=== PATIENT | female | born 1965 | race Caucasian/White ===

== ENCOUNTER 2019-05-10 13:27 | Inpatient (IN) | payer BC, OTHER ==
[~2019-05-10] VITALS: Ht 162.6 cm; Wt 68.9 kg
[2019-05-10 13:35] VITALS: BP 142/95
[2019-05-10] MEDS ORDERED: XANAX 0.25 MG0.25 MG PO (13:52)
[2019-05-10] MEDS ORDERED: PRINIVIL10 MG PO (13:52)
[2019-05-10 14:51] LABS: HEMATOCRIT 41.5 % (37.0-47.0); HEMOGLOBIN 13.9 gm/dL (12.0-15.0); MCH 36.8 pg (26.0-34.0); MCHC 33.4 g/dL (28.0-37.0); MCV 110.3 fL (80.0-100.0); RBC 3.76 mil/uL (4.20-5.00); RDW 15.5 % (10.5-14.5); WBC 8.7 thou/uL (4.0-11.0)
[2019-05-10 14:53] LABS: AMP/METHAMP Negative (Negative); BARBITURATES Negative (Negative); BENZODIAZEPINES POSITIVE (Negative); COCAINE Negative (Negative); METHADONE Negative (Negative); OPIATES Negative (Negative); PCP Negative (Negative)
[2019-05-10 15:19] LABS: CALCIUM 9.5 mg/dL (8.5-10.1); CREATININE 0.8 mg/dL (0.6-1.0); POTASSIUM 3.9 mmol/L (3.5-5.1)
[2019-05-10 15:25] LABS: ALBUMIN 3.5 g/dL (3.4-5.0); TOTAL PROTEIN 6.7 g/dL (6.4-8.2)
[2019-05-10 18:04] VITALS: BP 136/90
[2019-05-10 18:37] VITALS: BP 137/88
[2019-05-10 19:02] VITALS: BP 150/100
[2019-05-10 20:10] VITALS: BP 149/105
[2019-05-10 20:25] VITALS: BP 122/65
[2019-05-11] VITALS: BP 119/62
[2019-05-11 05:00] VITALS: BP 118/79
[2019-05-11 06:14] LABS: ANION GAP 9 mmol/L (7-16); BUN 11 mg/dL (7-18); CALCIUM 9.3 mg/dL (8.5-10.1); CHLORIDE 100 mmol/L (98-107); CHOLESTEROL 179 mg/dL (<200); CO2 29 mmol/L (21-32); CREATININE 0.9 mg/dL (0.6-1.0); GLUCOSE 95 mg/dL (74-106); HDL CHOLESTEROL 66 mg/dL (>40); LDL CHOLESTEROL 97 mg/dL (<100); MAGNESIUM 1.5 mg/dL (1.8-2.4); POTASSIUM 3.9 mmol/L (3.5-5.1); SODIUM 138 mmol/L (136-145); TC:HDL 2.7 Ratio (Not establshd); TRIGLYCERIDE 84 mg/dL (<150); TROPONIN-I 0.07 ng/mL (<0.06); VLDL 17 mg/dL (<40)
[2019-05-11 07:10] VITALS: BP 120/82
--- NOTE | 2019-05-11 10:50 | EKG ---
[place] [address] [facility] [employer] [place] [address] ELECTROCARDIOGRAM REPORT Name: IAN GARCIA Room #: 358-P ADM IN M.R.#: [id number] Admission: 05/10/19 Attend Phys: Orion Castillo MD Discharge: Date of : 65 Report #: [id number] THIS REPORT FOR: //name// [facility] ED Test Date: 2019-05-10 Test Time: 13:38:48 Pat Name: IAN GARCIA Department: Room: 358 Gender: F Operations Mgr: RUPERTO : 1965 Requested By: Pavel Donato Order Number: [id number] MD: Norberto Hernandez Measurements Intervals [place] Rate: 137 P: 36 OR: 127 QRS: -9 QRSD: 93 T: 208 QT: 258 QTc: 390 Interpretive Statements Sinus tachycardia Ventricular premature complex Aberrant complex Probable left atrial enlargement LVH with secondary repolarization abnormality Anterior Q waves, possibly due to LVH Baseline wander in lead(s) V2 No previous ECG available for comparison Electronically Signed On 05-11-2019 10:50:07 VACUUM WORKER by Norberto Hernandez [email or web address] <ELECTRONICALLY SIGNED> By: Norberto Hernandez MD 05/11/19 1050 1338 37 Norberto Hernandez MD /PITA
[2019-05-11 10:56] VITALS: BP 109/75
[2019-05-11 15:06] VITALS: BP 90/57
[2019-05-11 19:30] VITALS: BP 97/68
[2019-05-12] VITALS (10 sets, daily range): BP systolic 80–114; BP diastolic 54–78
[2019-05-12 05:46] LABS: CALCIUM 8.5 mg/dL (8.5-10.1); CREATININE 0.8 mg/dL (0.6-1.0); MAGNESIUM 1.9 mg/dL (1.8-2.4)
--- NOTE | 2019-05-12 07:39 | HC ---
[facility] [place] [place] [address] CONSULTATION Name: IAN GARCIA Room #: 358-P [facility] IN ..#: [id number] Admission: 05/10/19 Attend Phys: Orion Castillo MD Discharge: Date of : 65 Report #: [id number] THIS REPORT FOR: //name// CC: Orion Samuel DATE OF SERVICE: 05/11/2019 CARDIOLOGY CONSULTATION INDICATIONS: Dyspnea. HISTORY OF PRESENT ILLNESS: This is a 53-year-old female with a history of hypertension and alcohol use, presenting with dyspnea. Yesterday, she developed dyspnea with minimal exertion. She thought it was related to anxiety and took medication without any relief. Her dyspnea persisted and she came to the ER for an evaluation. She does report having dyspnea on exertion for quite some time. There is no history of angina, fever, nausea or diarrhea. In the ER, she was noted to be hypertensive and tachycardic. Chest x-ray was suggestive for pulmonary edema. A CT of the chest was negative for pulmonary emboli. The patient was treated with IV Lasix with partial resolution of her symptoms. PAST MEDICAL HISTORY: Hypertension, reports that she has been inconsistent with her medication. Denies diabetes. ALLERGIES: ERYTHROMYCIN. MEDICATIONS: At home include lisinopril 10 mg daily and Xanax p.r.n. SOCIAL HISTORY: Negative for tobacco use. Drinks 2 alcoholic beverages per day. FAMILY HISTORY: Father with a history of an [place] in his 50s. REVIEW OF SYSTEMS: A full 10-point review of systems performed. Only the pertinent positives and negatives are described in the HPI. PHYSICAL EXAMINATION: VITAL SIGNS: Blood pressure is 120/80, heart rate is 108 beats per minute. GENERAL APPEARANCE: This is a well-developed, well-nourished female in no acute distress. HEENT: Normocephalic, atraumatic. Oral mucosa moist. NECK: Supple. LUNGS: Slightly diminished breath sounds at bases. CARDIAC: Regular rate and rhythm, S1, S2 positive. ABDOMEN: Soft, nontender. [facility] [address] [place] [address] CONSULTATION Name: IAN GARCIA Dejan Room #: [facility] IN M.R.#: [id number] Admission: 05/10/19 Attend Phys: Orion Castillo MD Discharge: Date of : 65 Report #: [id number] EXTREMITIES: No cyanosis, no edema. LABORATORY VALUES: Sodium is 138, creatinine is 0.9. Troponin is 0.7 x 2. White count is 8.7, hemoglobin 13.9. ASSESSMENT AND PLAN: 1. Congestive heart failure, symptoms improved with Lasix therapy. Unclear. May be related to uncontrolled hypertension as she has been not taking her medications on a daily basis. We will need to rule out ischemia. Continue with Lasix for now. 2. Minimal troponin elevation, may be related to oxygen supply/demand mismatch. However, we will need to rule out ischemia. I had a discussion with the patient regarding the pros and cons of noninvasive stress testing versus cardiac catheterization. She has decided to proceed with the former. 3. Hypertension, improved with diuresis. Can resume lisinopril. 4. Alcohol use, recommended that she decrease her alcohol consumption. <ELECTRONICALLY SIGNED> By: Norberto Hernandez MD 05/12/19 0739 0849 0949 Norberto Hernandez MD /nt
--- NOTE | 2019-05-12 08:29 | EKG ---
[place] [address] [facility] [place] [address] ELECTROCARDIOGRAM REPORT Name: PABLITOMARCELLEMIGDIOIAN L Room #: 358-P ADM IN M.R.#: [id number] Admission: 05/10/19 Attend Phys: Orion Castillo MD Discharge: Date of : 65 Report #: [id number] THIS REPORT FOR: //name// [facility] Test Date: 2019-05-11 Test Time: 16:55:46 Pat Name: IAN GARCIA Department: Room: 358 Gender: F Survey Research Professor: Tristen MITCHELL : 1965 Requested By: Orion Castillo Order Number: [id number] MD: Dave Stevens Measurements Intervals [place] Rate: 104 P: 38 SC: 171 QRS: -14 QRSD: 100 T: 94 QT: 348 QTc: 458 Interpretive Statements Sinus tachycardia Paired ventricular premature complexes Poor R wave progression Nonspecific ST and T wave abnormality Compared to ECG 05/10/2019 13:38:48 Ventricular complexes are now present Electronically Signed On 05-12-2019 8:29:03 PHOTOGRAPHIC EQUIPMENT ASSEMBLER by Dave Stevens [email or web address] <ELECTRONICALLY SIGNED> By: Dave Stevens MD, [facility] 05/12/19 0829 1655 1655 Dave Stevens MD, [facility] /EPI
--- NOTE | 2019-05-12 09:58 | 2DMMODE ---
[facility] [address] [place] [address] 2 D/M-MODE ECHOCARDIOGRAM Name: IAN GARCIA Room #: 358-P ADM IN M.R.#: [id number] Admission: 05/10/19 Attend Phys: Orion Castillo MD Discharge: Date of : 65 Report #: [id number] THIS REPORT FOR: //name// APPROVED REPORT Study performed: 05/12/2019 08:04:42 EXAM: Comprehensive 2D, Doppler, and color-flow Echocardiogram Patient Location: Echo lab Room #: [facility] Status: routine BSA: 1.71 BP: 98/70 mmHg Other Information Study Quality: Good Indications Dyspnea Hypertension/HDD Elevated BNP 2D Dimensions RVDd: 40.24 mm IVSd: 8.11 (7-11mm) LVOT Diam: 18.99 (18-24mm) LVDd: 60.99 mm PWd: 7.99 (7-11mm) Ascending Ao: 25.26 (22-36mm) LVDs: 54.55 (25-40mm) Aortic Root: 24.82 mm IVC: 24.00 mm Volumes Left Atrial Volume (Systole) Single Plane 4CH: 32.17 mL Single Plane 2CH: 63.92 mL LA ESV Index: 32.00 mL/m2 Aortic Valve AoV Peak Kirk.: 1.24 m/s AO Peak Gr.: 6.12 mmHg LVOT Max P.37 mmHg LVOT Max V: 0.59 m/s ANGELA Vmax: 1.34 cm2 Mitral Valve E/A Ratio: 1.9 MV Decel. Time: 184.84 ms [facility] [address] [place] [address] 2 D/M-MODE ECHOCARDIOGRAM Name: IAN GARCIA Dejan Room #: 358-P [facility] IN [facility]#: [id number] Admission: 05/10/19 Attend Phys: Orion Castillo MD Discharge: Date of : 65 Report #: [id number] MV E Max Kirk.: 0.74 m/s MV A Kirk.: 0.38 m/s MV PHT: 24.92 ms IVRT: 89.97 ms Pulmonary Valve PV Peak Kirk.: 0.70 m/s PV Peak Gr.: 1.95 mmHg Pulmonary Vein P Vein S: 0.33 m/s P Vein A: 0.25 m/s P Vein D: 0.46 m/s P Vein A Dur.: 76.1 msec P Vein S/D Ratio: 0.72 Tricuspid Valve TR Peak Kirk.: 2.46 m/s RAP Estimate: 10.00 mmHg TR Peak Gr.: 24.16 mmHg PA Pressure: 34.00 mmHg Left Ventricle Left ventricle is mildly dilated. There is global hypokinesis of the left ventricle. There is normal left ventricular wall thickness. Left ventricular ejection fraction is severely decreased. LVEF is 20-25%. Severe diastolic dysfunction is present (restrictive filling). Right Ventricle Right ventricle is at the upper limits of normal. The right ventricular systolic function is normal. Atria The left atrium size is normal. The right atrium size is normal. Aortic Valve The aortic valve is normal in structure. Trace aortic regurgitation. There is no aortic valvular stenosis. Mitral Valve The mitral valve is normal in structure. Moderate mitral regurgitation. No evidence of mitral valve stenosis. Tricuspid Valve The tricuspid valve is normal in structure. Mild tricuspid regurgitation. PAP is estimated at 34 mmHg. Pulmonic Valve The pulmonary valve is normal in structure. Mild pulmonic [facility] [address] [place] [address] 2 D/M-MODE ECHOCARDIOGRAM Name: IAN GARCIA Room #: 358-P [facility] IN .R.#: [id number] Admission: 05/10/19 Attend Phys: Orion Castillo MD Discharge: Date of : 65 Report #: [id number] regurgitation. Great Vessels The aortic root is normal in size. IVC is dilated and collapses >50% with inspiration. Pericardium There is no pericardial effusion. <Conclusion> Left ventricular ejection fraction is severely decreased. There is global hypokinesis of the left ventricle. LVEF is 20-25%. Severe diastolic dysfunction The aortic valve is normal in structure. Trace aortic regurgitation, no stenosis. The mitral valve is normal in structure. Moderate mitral regurgitation. Mild tricuspid regurgitation. Pulmonary artery pressure estimated at 34 mmHg. There is no pericardial effusion. <ELECTRONICALLY SIGNED> By: Dave Stevens MD, FACC 05/12/19956 6 6 Dave Stevens MD, FACC /INF
--- NOTE | 2019-05-12 10:02 | EKG ---
[place] [address] [facility] [place] [address] ELECTROCARDIOGRAM REPORT Name: IAN GARCIA Room #: 358- ADM IN M.R.#: [id number] Admission: 05/10/19 Attend Phys: Orion Castillo MD Discharge: Date of : 65 Report #: [id number] THIS REPORT FOR: //name// [facility] Test Date: 2019-05-12 Test Time: 09:52:20 Pat Name: IAN GARCIA Department: Room: 358 P Gender: F Quality Control Auditor: Anthony GARCIA : 1965 Requested By: Liset Victoria Order Number: [id number] MD: Dave Stevens Measurements Intervals [place] Rate: 103 P: 37 NE: 152 QRS: -12 QRSD: 101 T: QT: 334 QTc: 437 Interpretive Statements Sinus tachycardia LVH with secondary repolarization abnormality Anterior Q waves, possibly due to LVH Compared to ECG 05/11/2019 16:55:46 Ventricular premature complex(es) no longer present Electronically Signed On 05-12-2019 10:01:52 BARREL INSPECTOR by Dave Stevens [email or web address] <ELECTRONICALLY SIGNED> By: Dave Stevens MD, [facility] 05/12/19 1001 0952 0952 Dave Stevens MD, [facility] /EPI
[2019-05-13] VITALS (7 sets, daily range): BP systolic 96–122; BP diastolic 69–87
[2019-05-13 06:50] LABS: CALCIUM 8.9 mg/dL (8.5-10.1); CREATININE 0.9 mg/dL (0.6-1.0); POTASSIUM 4.6 mmol/L (3.5-5.1)
[2019-05-13 08:42] LABS: BE(vivo) -2.7 mmol/L (-2 to +3); BE(vivo) -5.3 mmol/L (-2 to +3); HCO3 19.7 mmol/L (22.0-26.0); HCO3 21.3 mmol/L (22.0-26.0); PCO2 VENOUS 36.8 mmHg (41.0-51.0); PO2 94.6 mmHg (80.0-100.0); PO2 VENOUS 31.5 mmHg (35.0-45.0); pH 7.403 (7.360-7.450); sO2 97.3 % (92.0-98.0)
--- NOTE | 2019-05-13 11:51 | CATHLAB ---
[facility] [place] [address] INVASIVE PROCEDURE REPORT Name: IAN GARCIA Dejan Room #: 358-P [facility] IN ..#: [id number] Admission: 05/10/19 Attend Phys: Orion Castillo MD Discharge: Date of : 65 Report #: [id number] THIS REPORT FOR: //name// APPROVED REPORT Study performed: 05/13/2019 07:30:54 Patient Details Patient Status: In-Patient Room #: The patient is a 53 year-old female Event Personnel Norberto Hernandez Chief Of Safety And Protection, Carline Amado RN RN, Fatuma Nesbitt RTYasmeen Ohara David Monitor Procedures Performed Right and Left Heart Cath w/or w/o Coronarie [id number] [facility] Indication CHF Current Status: , Dyspnea Risk Factors Hypertension Procedure Narrative The Right Groin^ was infiltrated with 1% Lidocaine subcutaneous anesthesia. A PINNACLE 4FR Sheath #[id number] sheath was inserted into the RFA^. Coronary angiography was performed using coronary diagnostic catheters. The right coronary system was accessed and visualized with a JR4 catheter. The left coronary system was accessed and visualized with a JL4 catheter. The left ventricle was accessed and visualized with a PIGTAIL catheter. Left ventricular/Aortic Valve gradient assessed via catheter pullback. Left ventriculogram was performed in 30 degree projection. Hemostasis was obtained with manual pressure following sheath removal without any complications. There was no hematoma. Intraoperative Conscious Sedation Sedation start time: 8.08 Case end Time: 8.57 Fentanyl 50 mcg Versed 2 mg Fluoro Time: 3.45 minutes Dose: DAP 2402.00 cGycm2 235 mGy [facility] [address] [place] [address] INVASIVE PROCEDURE REPORT Name: RADHAIAN Dejan Room #: 358-P ADM IN M.R.#: [id number] Admission: 05/10/19 Attend Phys: Orion Castillo MD Discharge: Date of : 65 Report #: [id number] Contrast Type and Amount: Omnipaque 85 ml Coronary Angiography The patient's coronary anatomy is right dominant. Diagnostic Cath Left Main This is a large caliber vessel, patent with no flow-limiting lesions. LAD This is a moderate size caliber vessel, traversing the anterior wall and wrapping around the apex. This vessel is patent with no flow-limiting lesions. Diagonal 1 This is a patent vessel, with no flow-limiting lesions. Diagonal 2 This is a patent vessel, with no flow-limiting lesions. Circumflex This is a patent vessel, with no flow-limiting lesions. OM1 This is a patent vessel, with no flow-limiting lesions. OM2 This is a patent vessel, with no flow-limiting lesions. Right Coronary This is a dominant vessel, with mild disease in the proximal segment, less than 20%. R PDA This is a patent vessel, with no flow-limiting lesions. RPLV This is a patent vessel, with no flow-limiting lesions. Left Ventriculography The left ventricle is mildly dilated in size with decreased contractility. The left ventricular ejection fraction is estimated to be 20%. Hemodynamics The right atrial mean pressure is 21 mmHg. The right ventricular pressure is 44/18 mmHg. The pulmonary artery pressure is 46/29 mmHg with a mean of 37 mmHg. The mean pulmonary capillary wedge pressure is 36 mmHg. The aortic pressure is 110/78 mmHg with a mean of mmHg. The left ventricular pressure is 115/19 mmHg with a mean of mmHg. The left ventricular end diastolic pressure is 36 mmHg. There was no gradient across the aortic valve upon pullback. Pullback from the left ventricle to the aorta revealed no gradient across the aortic valve. PaO2 saturation is 46.80 %. Arterial saturation is 95.80 %. The cardiac output using the Radha method is 2.04 L/min. The cardiac index using the Radha method is 1.17 L/min/m2. Conclusion 1. Dilated, nonischemic cardiomyopathy. [address] [address] INVASIVE PROCEDURE REPORT Name: RADHAIAN Room #: 358-P ADM IN M.R.#: [id number] Admission: 05/10/19 Attend Phys: Orion Castillo MD Discharge: Date of : 65 Report #: [id number] 2. Mild disease in the RCA. 3. Recommend aggressive risk factor modification and guideline directed medical therapy for cardiomyopathy. <ELECTRONICALLY SIGNED> By: Norberto eHrnandez MD 05/13/19 1150 1150 1150 Norberto Hernandez MD /INF
[2019-05-14 04:12] LABS: CALCIUM 8.8 mg/dL (8.5-10.1); CREATININE 0.9 mg/dL (0.6-1.0)
[2019-05-14 04:15] LABS: HEMATOCRIT 40.1 % (37.0-47.0); HEMOGLOBIN 13.1 gm/dL (12.0-15.0); MCH 36.6 pg (26.0-34.0); MCHC 32.6 g/dL (28.0-37.0); MCV 112.2 fL (80.0-100.0); RBC 3.57 mil/uL (4.20-5.00); RDW 15.6 % (10.5-14.5); WBC 6.4 thou/uL (4.0-11.0)
[2019-05-14 04:30] VITALS: BP 100/82
[2019-05-14 07:30] VITALS: BP 120/88
[2019-05-14 11:45] VITALS: BP 116/87
[2019-05-14] MEDS ORDERED: ALDACTONE50 MG PO (12:57)
[2019-05-14] MEDS ORDERED: LISINOPRIL2.5 MG PO (12:57)
[2019-05-14] MEDS ORDERED: CARVEDILOL3.125 MG PO (12:57)
[2019-05-14] MEDS ORDERED: ASPIR 8181 MG PO (12:57)
[2019-05-14 13:36] VITALS: BP 116/87
[2019-05-14 14:30] VITALS: BP 116/87
== END 2019-05-14 16:28 | disposition home or self-care (01) | DRG 287 ==
LOC: ER 13:27 → EROBS 18:13 → 3W 18:13 → 2N 05-13 13:19
PROVIDERS: Emergency Medicine; Internal Medicine Cardiovascular Disease; Physician Assistant; ADMIT Internal Medicine
PROC: B2111ZZ Fluoroscopy of Multiple Coronary Arteries using Low Osmolar Contrast (ICD-10-PCS; principal; 2019-05-13)
PROC: 4A023N7 Measurement of Cardiac Sampling and Pressure, Left Heart, Percutaneous Approach (ICD-10-PCS; principal; 2019-05-13)
PROC: B2151ZZ Fluoroscopy of Left Heart using Low Osmolar Contrast (ICD-10-PCS; principal; 2019-05-13)
DX: I11.0 Hypertensive heart disease with heart failure (principal); F41.9 Anxiety disorder, unspecified; F10.10 Alcohol abuse, uncomplicated; I50.9 Heart failure, unspecified; I16.0 Hypertensive urgency; R00.0 Tachycardia, unspecified; F41.1 Generalized anxiety disorder; E87.70 Fluid overload, unspecified; Z82.49 Family history of ischemic heart disease and other diseases of the circulatory system; Z79.82 Long term (current) use of aspirin; Z79.899 Other long term (current) drug therapy; Z88.1 Allergy status to other antibiotic agents; Z23 Encounter for immunization; I42.8 Other cardiomyopathies
CPT/HCPCS: 10080; 10081; 10879

== ENCOUNTER → 2019-08-12 | Outpatient (CLI) | payer BC, OTHER ==
[~2019-08-12] MED LIST: ALDACTONE50 MG PO; ASPIR 8181 MG PO; CARVEDILOL3.125 MG PO; LISINOPRIL2.5 MG PO; PRINIVIL10 MG PO; XANAX 0.25 MG0.25 MG PO
== END ==
LOC: SJCVCIMAG 08:45
DX: I34.0 Nonrheumatic mitral (valve) insufficiency (principal); I42.9 Cardiomyopathy, unspecified; I25.10 Atherosclerotic heart disease of native coronary artery without angina pectoris; I11.0 Hypertensive heart disease with heart failure; I50.9 Heart failure, unspecified; R60.9 Edema, unspecified; Z95.810 Presence of automatic (implantable) cardiac defibrillator; Z79.82 Long term (current) use of aspirin; Z79.899 Other long term (current) drug therapy

== ENCOUNTER → 2020-11-15 | Outpatient (CLI) | payer BC, OTHER | LOC: SJCVCIMAG 08:03 | PROVIDERS: ATTEND Internal Medicine Cardiovascular Disease | DX: I25.10 Atherosclerotic heart disease of native coronary artery without angina pectoris (principal); I42.9 Cardiomyopathy, unspecified; I10 Essential (primary) hypertension ==